=== PATIENT | male | born 1990 | race Caucasian/White ===

== ENCOUNTER 2020-11-29 16:47 | Emergency (ER) | payer SELFPAY ==
[2020-11-29] VITALS (8 sets, daily range): BP systolic 142–148; BP diastolic 89–93; PULSE 93–123; RESP 18–24; TEMP 36.8; O2SAT 93–98; BMI 38.0
--- NOTE | 2020-11-29 17:12 | XRR_ITS ---
PROCEDURE INFORMATION: Exam: XR Chest Exam date and time: 11/29/2020 5:14 PM Age: 30 years old Clinical indication: Shortness of breath; Additional info: Asthma/sob TECHNIQUE: Imaging protocol: XR of the chest. Views: 1 view. COMPARISON: CR Chest 2 views* [id number] 06/06/2016 10:22 AM FINDINGS: Lungs: Mildly under inflated and clear. Pleural spaces: Unremarkable. No pleural effusion. No pneumothorax. Heart/Mediastinum: The cardiac shadow is normal in size. Bones/joints: No acute abnormality. XR/XR chest 1V portable [id number] IMPRESSION: No acute findings.
--- NOTE | 2020-11-29 21:00 | W.ED.SOB ---
HPI - SOB/Dyspnea General: Chief Complaint: Shortness of Breath/Dyspnea Stated Complaint: DIFF BREATHING/ASTHMA Time Seen by Provider: 11/29/20 20:11 History of Present Illness: HPI Narrative: The patient is a 30-year-old male with past medical history asthma who comes to the ER complaining of shortness of breath. He says he has been having allergies and sinus issues over the past 4 days as well. He has been using his albuterol inhaler including 3 times today with minimal improvement of his shortness of breath. On arrival to the ER his heart rate is 112 sinus tachycardia and he is not wheezing. 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 He got up to walk and the nurse reported that his heart rate was 200. When I came in the room to see him his heart rate was 105 sinus tachycardia. The patient reports he frequently gets tachycardic into the 180s at work. Which is normal for him. MD elicited complaint: shortness of breath and asthma attack Pertinent past history: asthma Severity: moderate Exacerbating factors: exertion Relieving factors: bronchodilators Known history of: asthma Associated symptoms: Reports no associated symptoms; Deny abdominal pain, chest pain, dizziness, extremity pain, orthopnea, palpitations or polyuria Review of Systems General: Reports: 10 or more systems reviewed and unremarkable except in HPI and below Const: Denies: fatigue Eyes: Denies: change in vision, blurry vision or eye redness ENMT: Reports: nasal congestion; Denies: throat pain, swelling of lips/tongue or ear or mastoid pain Card: Denies: chest pain, palpitations, irregular heart rhythm, edema, dyspnea on exertion or orthopnea Resp: Reports: dyspnea and wheezing; Denies: productive cough or non-productive cough GI: Denies: abdominal pain, diarrhea or GI cramping : Denies: flank pain, urinary frequency or urinary urgency Musc: Denies: neck pain, back pain, extremity pain, joint pain, joint redness, limited range of motion or muscle weakness Skin/Breast: Denies: rash, pruritus, erythema, skin pain or skin tenderness Neuro: Denies: headache(s), numbness in extremities, weakness in extremities, sensory changes, difficulty walking, dizziness, confusion or Slurred speech present Psych: Denies: anxiety or depression Endo: Denies: polyuria All/Imm: Denies: urticaria, throat swelling or tongue swelling Physical Exam Const: COMMON NORMALS: no acute distress, average body habitus, patient oriented x3, no limitations, healthy appearing, alert and well nourished GENERAL APPEARANCE: cooperative, comfortable, well kempt and well developed ORIENTATION/CONSCIOUSNESS: Yes awake, Yes oriented to person, Yes oriented to place and Yes oriented to time HENMT: COMMON NORMALS: normocephalic, external ears normal and Normal external nose present HEAD & SCALP: normal to inspection and normocephalic NOSE: Normal external nose present EXTERNAL EAR: Yes external ears normal MOUTH: Normal oral and palatal mucosa present THROAT: posterior oropharynx normal Eye: COMMON NORMALS: Equal, round and reactive pupils present and EOMs intact bilaterally GENERAL EYE: appearance normal, both eyes and all related structures PUPIL: Yes Equal, round and reactive pupils present Neck/C-Spine: COMMON NORMALS: full ROM, no lymphadenopathy, no meningeal signs and no JVD GENERAL: Yes normal visual inspection Lymph: LYMPHATIC: no lymphadenopathy noted Chest: COMMONS NORMALS: normal inspection of the chest and normal palpation of entire chest wall Resp: COMMON NORMALS: normal respiratory effort, No retractions, No use of accessory muscles, clear to auscultation bilaterally and percussion normal EFFORT & INSPECTION: Yes able to speak in complete sentences AUSCULTATION: clear to auscultation bilaterally PERCUSSION: percussion normal Cardio: COMMON NORMALS: no JVD, regular rhythm, S1 normal heart sound present, S2 normal heart sound present and Peripheral pulses 2+ throughout RATE: tachycardic RHYTHM: regular rhythm HEART SOUNDS: S1 normal heart sound present and S2 normal heart sound present PERIPHERAL PULSES: Peripheral pulses 2+ throughout GI: COMMON NORMALS: Normal to inspection, nondistended, normoactive bowel sounds present, Soft to palpation, non-tender and no masses INSPECTION: Yes normal to inspection PALPATION: Yes Soft to palpation : COMMON NORMALS: Yes no CVA tenderness BLADDER/KIDNEY EXAM: Yes no CVA tenderness Back/Pelvis: COMMON NORMALS: no CVA tenderness, thoracic and lumbar spine normal to inspection, no thoracic nor lumbar tenderness and thoraco-lumbar ROM normal Extremity: COMMON NORMALS: normal to inspection, full ROM, capillary refill normal, no joint enlargement and no pedal edema GENERAL: Yes normal exam except as noted Neuro: COMMON NORMALS: patient oriented x3, CN's II-XII intact bilaterally, moves all extremities, no focal motor deficits, no sensory deficits noted and gait normal SENSORIUM/ORIENTATION: Yes alert, Yes oriented to person, Yes oriented to place and Yes oriented to time MENINGEAL SIGNS: Yes no meningeal signs Psych: COMMON NORMALS: mental status grossly normal, Normal thought process present, cooperative, normal affect and speech normal APPEARANCE: Yes well kempt ATTITUDE: Yes calm SPEECH: Yes normal speech THOUGHT PROCESS: Normal thought process present Skin: COMMON NORMALS: no rashes or lesions noted GENERAL SKIN EXAM: no rashes or lesions noted Course Vital Signs: Vital signs: Vital Signs Temperature 98.3 F 11/29/20 17:38 Pulse Rate 93 11/29/20 23:02 Respiratory Rate 18 11/29/20 23:02 Blood Pressure 142/93 11/29/20 22:26 Pulse Oximetry 95 11/29/20 23:02 MDM - SOB/Dyspnea MDM Narrative: Medical decision making narrative: The patient comes to the ER with sinus congestion and complaining of an asthma attack. He was given albuterol with good effect of his shortness of breath and Solu-Medrol as well. 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 He has not had a primary care physician or seen a delinquent tax collection assistant in some time so I placed a case management referral to help him get an appointment for both of those locally. He was discharged with albuterol, Medrol Dosepak, and levofloxacin. He will return to the ER with worsening symptoms and set up with primary delinquent tax collection assistant next week. Lab Data: Labs: Lab Results 11/29/20 11/29/20 11/29/20 Range/Units 21:00 21:25 21:25 WBC 11.0 H (4.0-10.0) 10^3/ uL RBC 5.45 H (4.1-5.3) 10^6/u L Hgb 16.7 H (11.7-16.6) g/dL Hct 49.8 (42.0-52.0) % MCV 91.4 (80-94) fL MCH 30.6 (28.0-34.0) pg MCHC 33.5 (30.0-36.0) g/dL RDW 12.1 (12.1-15.1) % Plt Count 184 (130-400) 10^3/c mm MPV 11.5 H (7.4-10.4) fL Neut % (Auto) 74.5 % Lymph % (Auto) 13.6 % Hamblen % (Auto) 9.6 % Eos % (Auto) 1.5 % Baso % (Auto) 0.5 % Neut # (Auto) 8.20 H (1.8-7.7) 10^3/u L Lymph # (Auto) 1.5 (0.8-4.8) 10^3/u L Hamblen # (Auto) 1.1 H (0.2-0.9) 10^3/u L Eos # (Auto) 0.2 (0.0-0.8) 10^3/u L Baso # (Auto) 0.1 (0.0-0.1) 10^3/u L Nucleated RBC % (a uto) 0 % Nucleated RBCs # 0.0 /100WBC D-Dimer <= 0.27 (0-0.59) ug/mIFE U Sodium (136-145) mmol/L Potassium (3.5-5.1) mmol/L Chloride (98-107) mmol/L Carbon Dioxide (22-29) mmol/L Anion Gap (5-19) BUN (6-20) mg/dL Creatinine (0.7-1.2) mg/dL GFR Calculation (90-130) mL/min Glucose (65-115) mg/dL Calculated Osmolal ity (285-295) mOsm/k g Lactate (0.5-2.2) mmol/L Calcium (8.5-10.5) mg/dL Total Bilirubin (0.15-1.2) mg/dL AST (0-40) U/L ALT (0-41) U/L Alkaline Phosphata se (40-130) IU/L Troponin T Baselin e (0-15) ng/L NT-Pro-B Natriuret Pep (0-125) pg/mL Total Protein (6.6-8.7) g/dL Albumin (3.5-5.2) g/dL Globulin (1.3-4.6) g/dL Urine Color Yellow (Yellow) Urine Appearance Clear (CLEAR) Urine pH 7 (5-7) Ur Specific Gravit y 1.015 (1.005-1.030) Urine Protein Neg (Negative) Urine Glucose (UA) Norm (Normal) Urine Ketones Negative (Negative) Urine Blood Neg (Negative) Urine Nitrate Negative (Negative) Urine Bilirubin Neg (Negative) Urine Urobilinogen Norm (Negative) mg/dL Ur Leukocyte Ana María ase Negative (Negative) 11/29/20 11/29/20 11/29/20 Range/Units 21:25 21:25 21:25 WBC (4.0-10.0) 10^3/ uL RBC (4.1-5.3) 10^6/u L Hgb (11.7-16.6) g/dL Hct (42.0-52.0) % MCV (80-94) fL MCH (28.0-34.0) pg MCHC (30.0-36.0) g/dL RDW (12.1-15.1) % Plt Count (130-400) 10^3/c mm MPV (7.4-10.4) fL Neut % (Auto) % Lymph % (Auto) % Hamblen % (Auto) % Eos % (Auto) % Baso % (Auto) % Neut # (Auto) (1.8-7.7) 10^3/u L Lymph # (Auto) (0.8-4.8) 10^3/u L Hamblen # (Auto) (0.2-0.9) 10^3/u L Eos # (Auto) (0.0-0.8) 10^3/u L Baso # (Auto) (0.0-0.1) 10^3/u L Nucleated RBC % (a uto) % Nucleated RBCs # /100WBC D-Dimer (0-0.59) ug/mIFE U Sodium 138 (136-145) mmol/L Potassium 4.2 (3.5-5.1) mmol/L Chloride 99 (98-107) mmol/L Carbon Dioxide 28 (22-29) mmol/L Anion Gap 15.2 (5-19) BUN 12 (6-20) mg/dL Creatinine 0.9 (0.7-1.2) mg/dL GFR Calculation 98.4 (90-130) mL/min Glucose 95 (65-115) mg/dL Calculated Osmolal ity 286 (285-295) mOsm/k g Lactate 1.0 (0.5-2.2) mmol/L Calcium 8.7 (8.5-10.5) mg/dL Total Bilirubin 0.6 (0.15-1.2) mg/dL AST 20 (0-40) U/L ALT 37 (0-41) U/L Alkaline Phosphata se 77 (40-130) IU/L Troponin T Baselin e 6 (0-15) ng/L NT-Pro-B Natriuret Pep 7 (0-125) pg/mL Total Protein 7.5 (6.6-8.7) g/dL Albumin 4.5 (3.5-5.2) g/dL Globulin 3.0 (1.3-4.6) g/dL Urine Color (Yellow) Urine Appearance (CLEAR) Urine pH (5-7) Ur Specific Gravit y (1.005-1.030) Urine Protein (Negative) Urine Glucose (UA) (Normal) Urine Ketones (Negative) Urine Blood (Negative) Urine Nitrate (Negative) Urine Bilirubin (Negative) Urine Urobilinogen (Negative) mg/dL Ur Leukocyte Ana María ase (Negative) Discharge Plan Discharge Patient Disposition: Home Clinical Impression: Asthma with exacerbation, Sinusitis Condition: Stable Prescriptions: New levofloxacin 750 mg tablet 750 mg PO DAILY 10 Days Qty: 10 RF: 0 Medrol (Tyron) 4 mg tablets,dose pack See Rx Instructions .ROUTE .COMPLEX Qty: 21 RF: 0 albuterol sulfate 90 mcg/actuation HFA aerosol inhaler 2 inh inhalation Q6H PRN (Reason: shortness of breath or wheezing) 30 Days RF: 0 No Action Vicks Vaporub Ointment See Rx Instructions .ROUTE .COMPLEX RF: 0 albuterol sulfate 90 mcg/actuation HFA aerosol inhaler 2 puff INHALATION Q6H PRN (Reason: Shortness Of Breath) RF: 0 Pain Relief ([id number]) 250-250-65 mg Tablet 1 tab PO Q6H PRN (Reason: PAIN/COLD SYMPTOMS) RF: 0 Vicks NyQuil Cold/Flu (cpm) 4-30-650 mg/30 mL Liquid See Rx Instructions .ROUTE .COMPLEX RF: 0 Discharge Orders: Discharge ED (Routine); Ordered 11/29/20 Ordered By: Valerio Castelan Discharge Diet: Advance as tolerated Discharge Activity: Resume usual activity Patient Instructions: Asthma (ED), Opioid Safety Activity Restrictions/Additional Instructions: 1. Asthma exacerbation: We have given you albuterol treatment which has improved your shortness of breath markedly. You continue to maintain good oxygen levels as well without supplemental oxygen. Please take the steroid pack and antibiotics as directed to help with your asthma and sinus infection. Return to the ER with worsening symptoms. I have placed a case management consult to help you get an appointment with your primary care doctor and delinquent tax collection assistant. 2. Tachycardia: It appears you have some longstanding history of elevated heart rate. It is a sinus tachycardia. Albuterol may elevate your heart rate temporarily but usually should go down and it appears with exertion your heart rate goes up significantly. Please follow-up with a delinquent tax collection assistant to discuss this as you may need a medication to slow your heart down. Return to the ER with any worsening symptoms, chest pain, shortness of breath, or any other worrisome symptoms. Coding Level of Care Code ED Warehouse Delivery Driver for Gianni Perales Exam Comprehensive
[2020-11-29 21:06] LABS: Add Urine Microscopic? NO; Charge for UA Resulting for Rev
[2020-11-29 21:12] LABS: Bilirubin Urine Neg (Negative); Blood Urine Neg (Negative); Glucose Urine UA Norm (Normal); Ketones Urine Negative (Negative); Leukocyte Esterase Urine Negative (Negative); Nitrate Urine Negative (Negative); Protein Urine Neg (Negative); Specific Gravity, Urine 1.015 (1.005-1.030); Urine Appearance Clear (CLEAR); Urine Color Yellow (Yellow); Urobilinogen Urine Norm (Negative); pH Urine 7 (5-7)
[2020-11-29] MEDS: sodium chloride 0.9% 1,000 ML 999 ML IV (21:20)
[2020-11-29 21:38] LABS: Basophils # 0.1 10^3/uL (0.0-0.1); Basophils % 0.5 %; Eosinophils # 0.2 10^3/uL (0.0-0.8); Eosinophils % 1.5 %; Hematocrit 49.8 % (42.0-52.0); Hemoglobin 16.7 g/dL (11.7-16.6); Lymphocytes # 1.5 10^3/uL (0.8-4.8); Lymphocytes % 13.6 %; Mean Corpuscular HGB Conc 33.5 g/dL (30.0-36.0); Mean Corpuscular Hemoglobin 30.6 pg (28.0-34.0); Mean Corpuscular Volume 91.4 fL (80-94); Mean Platelet Volume 11.5 fL (7.4-10.4); Monocytes # 1.1 10^3/uL (0.2-0.9); Monocytes % 9.6 %; Neutrophils % 74.5 %; Nucleated Red Blood Cells % 0 %; Platelet Count 184 10^3/cmm (130-400); Red Blood Count 5.45 10^6/uL (4.1-5.3); Red Cell Distribution Width 12.1 % (12.1-15.1)
[2020-11-29 21:53] LABS: D Dimer <= 0.27 ug/mIFEU (0-0.59)
--- NOTE | 2020-11-29 21:53 | CTR_ITS ---
PROCEDURE INFORMATION: Exam: CTA Chest With Contrast Exam date and time: 11/29/2020 10:02 PM Age: 30 years old Clinical indication: Shortness of breath; Additional info: Dyspnea TECHNIQUE: Imaging protocol: Computed tomographic angiography of the chest with contrast. 3D rendering (Not supervised by radiologist): MIP and/or 3D reconstructed images were created by the technologist. Radiation optimization: All CT scans at this facility use at least one of these dose optimization techniques: automated exposure control; mA and/or kV adjustment per patient size (includes targeted exams where dose is matched to clinical indication); or iterative reconstruction. Contrast material: OMNI 350; Contrast volume: 156 ml; Contrast route: INTRAVENOUS (IV); COMPARISON: CR (CHEST, ) 11/29/2020 5:22 PM RADIATION DOSE METRICS: Total DLP (mGy-cm): 1130.29 FINDINGS: Pulmonary arteries: No evidence of pulmonary embolus. Aorta: No acute abnormality. Lungs: No consolidation. No masses. Pleural spaces: Unremarkable. No pneumothorax. No pleural effusion. Heart: No cardiomegaly. No pericardial effusion. Lymph nodes: No enlarged lymph nodes. Bones/joints: No acute fracture. Soft tissues: Within normal limits. CT/CT angio chest PE protcl [id number] IMPRESSION: No acute findings. Radiation Dose CTDIVOL = (mGy): DLP = 1130.29 (mGy-cm)
[2020-11-29 21:57] LABS: Troponin(5th) Baseline 6 ng/L (0-15)
[2020-11-29] MEDS: iohexol 350 mg/mL 100 mL Btl IV ×2 (22:05→22:10)
[2020-11-29 22:07] LABS: Alanine Aminotransferase 37 U/L (0-41); Albumin Level 4.5 g/dL (3.5-5.2); Alkaline Phosphatase 77 IU/L (40-130); Anion Gap 15.2 (5-19); Aspartate Amino Transferase 20 U/L (0-40); Blood Urea Nitrogen 12 mg/dL (6-20); Calcium 8.7 mg/dL (8.5-10.5); Carbon Dioxide 28 mmol/L (22-29); Chloride 99 mmol/L (98-107); Glomerular Filtration Rate 98.4 mL/min (90-130); Glucose 95 mg/dL (65-115); NT Pro B Type Natriuretic Pept 7 pg/mL (0-125); Osmolality Calculated 286 mOsm/kg (285-295); Potassium 4.2 mmol/L (3.5-5.1); Sodium 138 mmol/L (136-145); Total Bilirubin 0.6 mg/dL (0.15-1.2); Total Protein 7.5 g/dL (6.6-8.7)
[2020-11-29] MEDS: levalbuterol 1.25 mg/3 mL Neb INHALATION (22:34)
[2020-11-29] MEDS: levoFLOXacin 750 mg Tablet PO (23:00)
[2020-11-29] MEDS: albuterol 8 gm MDI 1 PUFF INHALATION (23:49)
--- NOTE | 2020-12-02 10:18 | DCPLANNER ---
research program manager had message to schedule a follow up appointment for patient with heart care. research program manager called heart care, spoke with Марина, gave clinic patients information. A follow up appointment was scheduled for Friday, December 04, 2020 at 12:[address] Azul. research program manager called phone number [phone], unable to speak with patient at this time, a voicemail was left for patient to return keycase assembler phone call. research program manager also had message to speak with patient about getting established with a primary care physician. research program manager called phone number [phone], unable to speak with patient, a voicemail was left for patient to return keycase assembler phone call.
--- NOTE | 2020-12-26 16:53 | DCPLANNER ---
Patient had a follow up appointment scheduled for 12.04.20 with [facility] - patient did not attend appointment.
== END 2020-11-29 23:56 | disposition home or self-care (01) ==
PROVIDERS: Emergency Provider Family Medicine
DX: J45.901 Unspecified asthma with (acute) exacerbation (principal); J32.9 Chronic sinusitis, unspecified
CPT/HCPCS: 36415; 71045; 71275; 80053; 81003; 83605; 83880; 84484; 85025; 85378; 94640; 96361; 96374; 99284; J2930; J3535; J7030; J7614; Q9967

== ENCOUNTER → 2023-09-13 14:34 | Outpatient (BNVA) | payer OTHER, SELFPAY | PROVIDERS: PCP Nurse Practitioner Family; Visit Provider Nurse Practitioner Family | DX: S46.912A Strain of unspecified muscle, fascia and tendon at shoulder and upper arm level, left arm, initial encounter (principal); X58.XXXA Exposure to other specified factors, initial encounter | CPT/HCPCS: 73030 ==